=== PATIENT | female | born 1990 | race Caucasian/White ===

== ENCOUNTER → 2023-06-10 06:55 | Outpatient (REF) | payer OTHER, SELFPAY | LOC: HWRAD 06:55 | PROVIDERS: ATTENDING PHYSICIAN Family Medicine | DX: R22.1 Localized swelling, mass and lump, neck (principal) | CPT/HCPCS: 76536 ==

== ENCOUNTER 2024-01-02 18:21 | Inpatient (IN) | payer BC, SELFPAY ==
[2024-01-02] VITALS (7 sets, daily range): BP systolic 114–130; BP diastolic 56–94; BMI 28.0
--- NOTE | 2024-01-02 11:11 | ED.GENMED ---
History of Present Illness
General
Chief Complaint: Abdominal Pain
Time Seen by Provider: 01/02/24 10:55
History of Present Illness
History of Present Illness:
33-year-old female without significant past medical history presenting to the emergency department for nausea, vomiting, diarrhea, abdominal pain. Patient reports pain that started acutely around 3 AM this morning. It woke her up from sleep.
Vomiting and the diarrhea has since resolved, however abdominal pain persists, diffuse in nature. Denies history of abdominal surgeries. Denies fever. Denies any known sick contacts. Did go out to eat last evening, however did not eat anything
out of the ordinary. Denies chest pain or difficulty breathing. Denies urinary symptoms. Last menstrual period ended yesterday. She did not try any medications for pain. She denies additional acute medical complaints.
Past History
Past History
ED Past Medical History: None
ED Past Surgical History: Orthopedic (Left ACL and medial meniscus repair)
Social History
Tobacco: Smoker
Alcohol: None
Drug: None
Personal: Partner
Living: with family
Phy Exam
Physical Exam
Physical Exam:
General: Well-appearing, no clinical signs of dehydration, nontoxic and in no acute distress
HEENT: protecting airway
Neck: appears supple
CV: Normal heart rate, regular rhythm, no evidence of cyanosis
Resp: No accessory muscle use, no increased work of breathing, lungs clear to auscultation bilaterally
Abd: Soft and non-distended, generalized nonfocal tenderness with voluntary guarding, no rebound
Extremities: No deformities, no swelling, no erythema
Neuro: alert, no focal neurologic deficit
: deferred
Rectal: deferred
Psych: Normal affect
Skin: Intact
Course
Orders/Labs/Results
Orders:
Orders
01/02/24 11:06
0.9% Sodium Chloride 1000 ml [Nss] 1,000 ml IV BOLUS
Ketorolac [Toradol] 15 mg IV NOW STA
01/02/24 11:07
CT Abd/pelvis W Iv Cont Urgent
Comment:
Reason For Exam: diffuse pain
Test Result ONCE
01/02/24 11:20
Complete Blood Count/With Diff Urgent
Comprehensive Metabolic Panel Urgent
HCG, Serum Qualitative Screen Urgent
Lipase Urgent
01/02/24 12:11
Add On- LAB Stat
Tests Added?: hcg qualitative
01/02/24 12:28
Add On- LAB Urgent
Tests Added?: serum
01/02/24 13:42
HCG, Urine Qualitative Screen Urgent
Date Specimen was Collected: 01/02/24
Time Specimen was Collected: 13:41
Urinalysis Reflex To Culture Urgent
Date Specimen was Collected: 01/02/24
Time Specimen was Collected: 13:41
Urine Microscopic Reflex Cult Urgent
Urine Culture Urgent
NICKIE Source: U
Specimen Description:
Date Specimen was Collected: 01/02/24
Time Specimen was Collected: 13:41
01/02/24 14:20
Morphine Sulfate 4 mg IV NOW STA
Abnormal Lab Results
01/02/24 01/02/24
11:20 13:42
WBC 16.2 H 10^3/uL
(4.8-10.8)
RBC 3.99 L 10^6/uL
(4.20-5.40)
MCH 34.3 H pg
(27.0-31.0)
Abs Immat Gran (auto) 0.1 H 10^3/uL
(0-0.05)
Absolute Neuts (auto) 14.3 H 10^3/uL
(1.4-6.5)
Neutrophils % 88.4 H %
(42.2-75.2)
Lymphocytes % 7.6 L %
(20.5-51.1)
Glucose 106 H mg/dl
(70-99)
AST 44 H U/L
(14-36)
Urine Ketones Trace A
(Negative)
Urine Nitrite (Reflex) Positive A
(Negative)
Urine Bilirubin 1+ A
(Negative)
Urine Urobilinogen 2+ A
(Neg - 1+)
Leukocyte Esterase Rfl Trace A
(Negative)
Urine Bacteria (Reflex) Moderate A
(Negative)
01/02/24 11:20
01/02/24 11:20
Vital Signs
Initial and Last Documented VS:
Initial Vital Signs
Temp Pulse Resp BP Pulse Ox
98.9 F 99 18 124/94 98
01/02/24 09:53 01/02/24 09:53 01/02/24 09:53 01/02/24 09:53 01/02/24 09:53
Last Documented Vital Signs
Temp Pulse Resp BP Pulse Ox
98.9 F 76 16 114/56 100
01/02/24 09:53 01/02/24 14:39 01/02/24 16:02 01/02/24 14:39 01/02/24 14:39
MDM/Problems Addressed
MDM/Problems Addressed:
33-year-old female without significant past medical history presenting to the to the emergency department for generalized abdominal pain with nausea, vomiting, diarrhea. Vital signs on arrival are normal.
On exam patient is well-appearing, nontoxic, no acute distress. Symptom presentation appears most consistent with viral gastroenteritis, however patient does have mild to moderate diffuse tenderness to the abdomen. Additional diagnostic
considerations include gastritis versus enteritis versus diverticulitis. Appendicitis is also consideration, however no focal right lower quadrant tenderness, lower suspicion. Cholecystitis is a consideration, however no focal right upper quadrant
tenderness, lower suspicion. Will plan for CT abdominal imaging, laboratory analysis, IV fluids and Toradol
16:00 -patient's labs show leukocytosis, however remains afebrile. CT is concerning, with evidence of large pelvic mass, suspected to be arising from the left ovary with large amount of ascites, concerning for peritoneal metastasis. Radiology
mentions potential for ovarian torsion given pain, however on reassessment, tenderness is not focal to the left lower quadrant, remains diffuse with suspicion that patient's pain is from her ascites. Given new diagnosis and patient's pain, plan for
admission for pain control potential IR consultation for. Will also discuss with gynecology.
*Critical Care Note
Total Time (30-74mins, 75-104mins- exclusive of procedures): Not Applicable
ED Attending Note
-
Portions of this chart may have been created with voice recognition software.� Occasional wrong word or��sound alike� substitutions may have occurred due to the inherent limitations of voice recognition software.
Discharge Plan
Departure
Prescriptions:
No Action
amoxicillin-pot clavulanate 875-125 mg tablet
1 tab PO BID Qty: 13 0RF
rabies vaccine, pcec (PF) 2.5 unit suspension for reconstitution
1 ml IM ONCE Qty: 1 0RF
Referrals:
Eliseo Pineda, DO [Family Provider] -
Interventions
Interventions:
*Risk Screen - Suicide Last Done: 01/02/24 11:05
*General Assessment Last Done: 01/02/24 11:04
*Neglect/Abuse Screening Last Done: 01/02/24 11:05
*ED COVID-19 Vaccine History Last Done: 01/02/24 11:04
VJ-Imsrny-Oueaqmhhbh Assessment Last Done: 01/02/24 11:05
Discharge Date and Time
Print Language: KAZAKH
[2024-01-02] MEDS: TORADOL 15 MG IV (11:21)
[2024-01-02] MEDS: NSS 1000 IV (11:22)
[2024-01-02 11:30] LABS: % Basophils 0.1 % (0-2); % Eosinophils 0.1 % (0-6); % Immature Granulocytes 0.4 % (0-0.5); % Lymphocytes 7.6 % (20.5-51.1); % Monocytes 3.4 % (1.7-9.3); % Neutrophils 88.4 % (42.2-75.2); Absolute Immature Granulocytes 0.1 10^3/uL (0-0.05); Absolute Lymphocytes 1.2 10^3/uL (1.2-3.4); Absolute Monocytes 0.6 10^3/uL (0.1-0.6); Absolute Neutrophils 14.3 10^3/uL (1.4-6.5); Hematocrit 38.8 % (37.0-47.0); Hemoglobin 13.7 g/dL (12.0-16.0); Mean Corp Hgb Conc. 35.3 g/dL (33.0-37.0); Mean Corpuscular Hgb 34.3 pg (27.0-31.0); Mean Corpuscular Volume 97.2 fL (81.0-99.0); Nucleated Red Blood Cells % 0 %; Platelet Count 316 10^3/uL (130-400); Red Blood Cell Count 3.99 10^6/uL (4.20-5.40); Red Cell Dist. Width 12.6 % (11.5-14.5); White Blood Cell Count 16.2 10^3/uL (4.8-10.8)
[2024-01-02 11:44] LABS: ALT (SGPT) 17 U/L (0-35); AST (SGOT) 44 U/L (14-36); Albumin 4.7 g/dl (3.5-5.0); Alkaline Phosphatase 68 U/L (38-126); Blood Urea Nitrogen 17 mg/dl (7-17); Calcium 9.9 mg/dl (8.4-10.2); Carbon Dioxide 24 mmol/L (22-30); Chloride 104 mmol/L (98-107); Glucose 106 mg/dl (70-99); Lipase 78 U/L (23-300); Potassium 4.6 mmol/L (3.5-5.1); Sodium 138 mmol/L (135-145); Total Bilirubin 1.2 mg/dl (0.2-1.3); Total Protein 7.3 g/dl (6.3-8.2); eGFR > 60.00
[2024-01-02 14:04] LABS: HCG, Urine Qualitative Screen Negative
[2024-01-02 14:12] LABS: Urine Albumin Trace (Neg - Trace); Urine Bilirubin 1+ (Negative); Urine Character Very Cloudy (Clear); Urine Color Amber; Urine Glucose Negative (Negative); Urine Ketone Trace (Negative); Urine Leukocyte Trace (Negative); Urine Nitrite Positive (Negative); Urine Occult Blood Negative (Negative); Urine Specific Gravity 1.025 (<1.030); Urine Urobilinogen 2+ (Neg - 1+)
[2024-01-02 14:13] LABS: HCG, Serum Qualitative Screen Negative
[2024-01-02] MEDS: MORPHINE SULFATE 4 MG IV ×2 (14:37→20:16)
[2024-01-02 14:50] LABS: Urine Amorphous Seen
[2024-01-02 14:51] LABS: Urine Bacteria Moderate (Negative); Urine Red Blood Cell None Seen /HPF (0-2); Urine White Cell 0-2 /HPF (0-5)
--- NOTE | 2024-01-02 16:48 | HPS.HSE ---
Family Physician
-
Family Physician: Eliseo Pineda
Chief Complaint
-
Abdominal pain, weight gain, axillary and inguinal adenopathy
History of Present Illness
33-year-old female complaining of abdominal pain that woke her up around 3 this morning associated with nausea, vomiting, diarrhea. She reports the vomiting and diarrhea have since resolved however the abdominal pain persists. She does report a
menstrual period ending yesterday 01/01/2024. She reports she has noticed weight gain over the past 2 months in her abdomen along with lumps occurring in bilateral groins and armpits she thought were ingrown hair follicles. Approximate 2 weeks ago
while bending over she felt a lot of pressure in her abdomen. 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 She does drink 3 beers a night Wednesday, Wednesday, Wednesday, , Wednesday with 7 beers each on Wednesday and
Wednesday . in the ER she was noted to have a large complex cystic mass in the pelvis extending into the abdomen concerning for ovarian neoplasm associated with moderate amount of ascites in the abdomen and pelvis concerning for peritoneal spread.
She reports mother with history of cyst removal noncancerous at age 17, sister with history of ovarian cyst, mother age 61 MS. she reports no family history of breast or ovarian cancer
Medical History
Past Medical History
Past Medical History: Reports Other
Additional Past Medical History:
Alcohol abuse
Nicotine abuse
Past Surgical History: Reports Other
Additional Past Surgical History:
Left ACL/MCL repair
Social History
Tobacco: Smoker (1/2 pack cigarettes on and off x 10 years)
Alcohol: Daily (3-4 beers Wednesday, 7 beers Wednesday 7 beers Wednesday)
Drug: None
Personal: Single
Employment: Employed
Family History
Family History: Other (Mother history of ovarian cyst noncancerous removal at age 17, sister history of ovarian cysts, mother age 61)
Allergies / Home Medications
Allergies reflects when Allergies were last updated in [employer].
Home Medications with original date entered in [employer]
Allergy/Medication List:
Allergies
Allergy/AdvReac Type Severity Reaction Status Date / Time
No Known Allergies Allergy Verified 12/21/22 11:50
Home Medications
ibuprofen 200 mg tablet 600 - 800 mg PO Q6HPRN PRN menstrual pain 01/02/24
Review of Systems
-
History Source: Patient and Family (Partner Rafa at bedside)
A 12 point ROS was completed and negative except as noted: Yes
Constitutional: Reports Weight Gain; Denies Fever, Fatigue or Chills
EENT: Denies Tearing or Mouth Swelling
Respiratory: Denies Cough or Trouble Breathing
Cardiac: Denies Chest Pain, Diaphoresis, Palpitations or Syncope
Abdomen/GI: Reports Abdominal Pain, Nausea, Vomiting and Diarrhea
: Denies Dysuria, Frequency, Flank Pain, Incontinence, Difficulty Voiding or Urgency
Musculoskeletal: Denies Joint Pain or Muscle Pain
Skin: Denies Itching or Rash
Neurological: Denies Dizzy, Headache or Weakness
Endocrine: Reports No Symptoms
Hematologic/Lymphatic: Reports Other (Reports bilateral axillary and inguinal adenopathy on and off)
Psych: Reports Calm
Physical Exam
Vital Signs
Vital Signs
Temp Pulse Resp BP Pulse Ox
98.9 F 76 16 114/56 100
01/02/24 09:53 01/02/24 14:39 01/02/24 16:02 01/02/24 14:39 01/02/24 14:39
Physical Exam
General: Comfortable (Post IV morphine) and Conversant; No Fever or Chills
HEENT: NormoCephalic, Anicteric, Moist mucous membranes, PERRLA, Mcdonough Conjunctivae and No Ptosis
Respiratory: Clear; No Wheezes, Rales or Rhonchi
Cardiac: S1/S2 and Regular Rhythm; No Murmur, Rub, Gallop or Peripheral Edema
Breast: No Mass/Lump, Puckering, Skin Changes or Nipple Discharge
GI: Soft, Tender (Generalized abdominal tenderness), Distended and No Hepatosplenomegaly
Rectal: Deferred by Provider
Genito-urinary: Deferred by me
Musculoskeletal: No Clubbing, No Cyanosis and No Edema
Skin: Warm and Dry; No Rash or Jaundice
Neuro: AO x 3, No Motor Deficits, Nonfocal/grossly intact, Cranial Nerves Intact and No Sensory Deficits; No Slurred Speech, Facial Droop, Tremors or Sedated
Hematologic/Lymphatic: Other (Bilateral axillary lymphadenopathy, right inguinal groin adenopathy on palpation)
Psych: Calm
Laboratory Results
-
01/02/24 11:20
01/02/24 11:20
Laboratory Results
Total Bilirubin 1.2 mg/dl (0.2-1.3) 01/02/24 11:20
AST 44 U/L (14-36) H 01/02/24 11:20
ALT 17 U/L (0-35) 01/02/24 11:20
Alkaline Phosphatase 68 U/L (38-126) 01/02/24 11:20
Lipase 78 U/L (23-300) 01/02/24 11:20
Data Reviewed
-
CT Scan: Report Reviewed by me
Lab Data: Labs Reviewed by me
Impression/Plan
-
Impression/plan:
Admit to MedSurg
#Abdominal pain 2/2 likely large LEFT OVARIAN CYSTIC MASS concerning for Neoplasm with ABD ASCITES into pelvis concerning for Malignant ascites
-Consult IR for paracentesis with fluid analysis and cytology
-Consult [facility] Onc Dr tripp chavis
-IV pain control with morphine, Zofran as needed
-hCG, AFP, LDH, CA125
-Check EKG
CT abdomen pelvis with IV contrast:
1. Large complex cystic mass is present within the pelvis and extending into the inferior aspect of the abdomen.
This mass is very likely ovarian in origin, and is most likely ovarian neoplasm, and highly concerning for ovarian carcinoma.
2. Given the acute onset of symptoms, ovarian torsion is a consideration, and please correlate clinically.
3. It is felt that this mass most likely arises from the left ovary.
4. Moderate amount of ascites within the abdomen and pelvis, and raises concern for peritoneal spread of neoplasm.
5. 2 mm nephrolith in the lower pole the left kidney.
#Alcohol abuse
Drinks 3-4 beers Wednesday, Wednesday, Wednesday, , Wednesday
-Drinks 7 beers Wednesday and 7 beers Wednesday
-MSAs screen with protocol
-IV thiamine IV folate
#Nicotine abuse
1/2 ppd x 10 years on /off
pt requesting nicotine patch will place for 14 mg
DVT prophylaxis
Subcu Lovenox
Full code
[2024-01-02 16:54] LABS: LDH 358 U/L (120-246)
[2024-01-02 17:36] LABS: INR 1.06; PT 13.6 Sec (11.4-14.6)
--- NOTE | 2024-01-02 17:46 | W.PN.UPDATE ---
Addendum entered and electronically signed by Liang Suarez DO 01/02/24 18:30:
Spoke with [facility] oncology (Dr. Francisco Ramos) and he feels that this may be an infection rather than malignancy. Could be due to tubo-ovarian abscess. Will start broad-spectrum antibiotics.
Original Note:
Update Note
Progress Note Update
Patient seen and examined. Discussed with KERRI Martel, and I agree with her note.
Gen-AAOx3, NAD
HEENT-NC, AT, anicteric, clear oral mm
Neck-supple
CV-reg, no M, +S1/S2
Lungs-clear B/L
Abd-soft, mild diffuse tenderness, mild distention
Ext-no edema
Musculoskeletal-no cyanosis, clubbing
Skin-warm and dry, bilateral axillary and inguinal lymphadenopathy, nontender
Neuro-grossly non-focal
Psych-calm, cooperative
Symptomatic ascites/large pelvic mass -admit to [facility] for treatment. Intractable pain related to ascites and mass. Will need diagnostic testing. Consult IR for paracentesis. Check fluid cytology. [facility] onc[facility] consult.
Patient noted onset of symptoms about 2 months ago with gradually increasing abdominal girth, swelling, intermittent lymphadenopathy. Denies any changes in her weight, denies anorexia, denies night sweats.
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 scan notes large complex cystic mass in the pelvis extending into the inferior aspect of the abdomen. Appears to be originating from the left ovary. Moderate amount of ascites noted.
Send tumor markers under the guidance of [facility] oncology.
No family history of breast or ovarian cancer.
Alcohol use disorder -watch for withdrawal symptoms. Follow alcohol withdrawal protocol. Thiamine folic acid.
Tobacco dependence -order nicotine replacement therapy.
Full code
[2024-01-02] MEDS: NICODERM TRANSDERMAL 14 MG TRANSDERM (20:10)
[2024-01-02] MEDS: LOVENOX 40 MG SC (20:12)
--- NOTE | 2024-01-02 20:17 | CON.MD ---
Consultation - Medical
-
33 yo G0 with LMP ending today presented to ER after acute pain this morning at 3 am. vomited x 2 foamy contents, diarrhea and generalized abdominal pain. two weeks ago was on belly and noted pressure. No complaints re voiding, bm. No change in
appetite. reports axillary LN after shaving that resolves. Has not shaved for several weeks. groin LN when shaving pubic hair.
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 denies abn pap. onset menses age 11 q m flow x 9d, first few d heavy and painful, monogamous same sex relationship x 3 y. No heterosexual relationship
ROS denies vaginal discharge, denies pain with intercourse
No meds
NKDA
SH half ppd, no vape, social marijuana, denies IVDU, [facility] [place]
FH M age 60 due to MS. Davila at age 16. F 67 no meds arthritis. youngest of 5. one sister with ovarian cysts. no fh breast, ov, ut, colon cancer
PE pleas white female, moves easilly
vss afeb
lungs cl
cor rrr
breasts no masses, shotty axillary Ln L axilla mobile and nontender, no supraclavicular LN palpated
abd soft, + bs, no guarding, + rebound, no referred pain, generalized abdominal discomfort
ext nt
vulva bus vag appear nml
cvx nulliparous appearing, no abn appearing discharge, no cervical motion tender
uterus normal and nontender
tender L adnexa
wbc 16
LDH 358
hcg neg
afp pending
ca [address] scan reviewed with Dr. Pulido:Large complex cystic mass within central pelvis. multiple cystic components. superior to ut. Moderate ascites. no signif enl abdominal or pelvic LN identified
Imp
abdominal pain
pelvic mass
Plan:
await tumor markers
pelvic US
abx pending gc/chlam cx
analgesia
consult Dr Ramos
30 min
[2024-01-02] MEDS: VIBRAMYCIN 260 MG IV (20:20)
[2024-01-02] MEDS: CEFOTAN 1000 MG IV (20:20)
[2024-01-02] MEDS: STERILE WATER FOR INJECTION 10 ML IV (20:20)
--- NOTE | 2024-01-02 21:55 | W.CON.GYNONC ---
Consultation
-
Date/Time Consultation Requested: 01/02/2024 4:24 pm
Date/Time Consultation Performed: 01/02/2024 9:50 pm
Requesting Provider: Edd Guerra
Performing Provider: Francisco Ramos
Reason for Consultation: Pelvic Mass
Chief Complaint
-
abdominal pain
History of Present Illness
33 yo G0 WF with LMP 12/27 presented to ER after acute pain this morning at 3 am. She describes vomited x 2, diarrhea and generalized abdominal pain. two weeks ago was on belly and noted pressure. No complaints re voiding, bm. No change in
appetite. reports axillary LN after shaving that resolves. Has not shaved for several weeks. groin LN when shaving pubic hair.
Nursing Faculty History per Dr Gerber:
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
denies abn pap. onset menses age 11 q m flow x 9d, first few d heavy and painful,
monogamous same sex relationship x 3 y.
No heterosexual relationship
Medical History
Past Medical History
Past Medical History: Reports None
Past Surgical History: Reports Other (knee arthroscopy)
Social History
Tobacco: Vaping
Alcohol: Daily
Drug: Marijuana
Employment: Employed
Allergies
Allergies reflect when allergies were last updated in [employer].
No Known Allergies Allergy (Verified 12/21/22 11:50)
Review of Systems
-
History Source: Patient
Abdomen/GI: Reports Abdominal Pain, Vomiting and Diarrhea
Physical Exam
Vital Signs / I&O
Vitals
Temp Pulse Resp BP Pulse Ox
98.9 F 75 18 130/61 97
01/02/24 19:53 01/02/24 19:53 01/02/24 19:53 01/02/24 19:53 01/02/24 19:53
Results
-
08/25/24 11:20
01/02/24 11:20
[facility]
[address] [place] [address]
[phone]
Patient Name: WILVER SMALLWOOD
: 1990
Unit Number: [id number]
Age/Sex: 33/F
Patient
Location: EMR
Order Provider: Edd Guerra DO
Exam Service Date: 01/02/24

Diagnostic Imaging Report
SignedOrder #:[id number]
Exams: CT Abd/pelvis W Iv Cont
EXAMINATION: CT of the abdomen and pelvis with intravenous contrast
INDICATION: 33-year-old with diffuse abdominal pain. Emesis and diarrhea. Elevated white blood cell count. Negative test.
COMPARISON: No comparison examination is available.
FINDINGS: CT of the abdomen and pelvis with intravenous contrast and without oral contrast, per the emergency department CT protocol.
Linear densities within both lower lungs, which likely represent linear atelectasis.
There is a large complex cystic mass within the central pelvis, with thickened enhancing septae and peripheral wall thickening. Multiple cystic components within the mass. This mass measures 13.4 cm craniocaudal by 12.2 cm transverse by 12.8 cm AP.
The mass is superior to the uterus.
This mass is most likely ovarian in origin. It most likely arises from the left ovary. I believe that I can identify a normal-appearing right ovary within the right pelvis.
This mass is considered highly suspicious for ovarian neoplasm and carcinoma, given the morphologic features.
No significant fat component is identified that would suggest a dermoid.
There is a moderate amount of ascites present within all 4 quadrants. The posterior left upper quadrant, there is suggestion of slight soft tissue thickening, and findings raise concern for malignant ascites.
Of note, given the acute onset of symptoms, torsion of this ovarian mass is a consideration.
For a complex cystic mass, tubo-ovarian abscess can be considered in the differential, but tubo-ovarian abscess is felt to be significantly less likely.
No focal abnormality gallbladder by CT with no evidence for biliary ductal dilation.
The liver appears within normal limits.
Spleen appears normal.
Both adrenal glands appear normal. The pancreas appears normal.
In the lower pole the left kidney, there is a 2 mm nephrolith. No other definite nephroliths are identified. No other focal abnormality kidneys. The visualized pelvicalyceal systems and ureters appear within normal limits.
The urinary bladder is not distended, with no gross abnormality.
No abnormality of the uterus.
Evaluation of the bowel is limited by the lack of GI luminal contrast agent. There are top normal to mildly dilated air-filled loops of small bowel present, most likely an adynamic ileus.
The appendix is retrocecal with no evidence for appendicitis.
There is no free intraperitoneal air.
The aorta has normal caliber.
No significantly enlarged abdominal or pelvic lymph nodes are identified.
At L5-S1, grade 1 spondylolisthesis with bilateral L5 pars defects. Moderate degenerative disc disease at L5-S1 with vacuum disc phenomenon.
Changes of previous mild Scheuermann's disease in the lower thoracic spine.
Minimal degenerative change of both hip joints.
IMPRESSION: Large complex cystic mass is present within the pelvis and extending into the inferior aspect of the abdomen. This mass is very likely ovarian in origin, and is most likely ovarian neoplasm, and highly concerning for ovarian carcinoma.
Given the acute onset of symptoms, ovarian torsion is a consideration, and please correlate clinically.
It is felt that this mass most likely arises from the left ovary. See above discussion.
Moderate amount of ascites within the abdomen and pelvis, and raises concern for peritoneal spread of neoplasm.
2 mm nephrolith in the lower pole the left kidney.
Electronically signed by Hugo Pulido MD, 01/02/2024 3:19 PM
Impression / Plan
-
I am concerned about possible tuboovarian abscess based on imaging, and symptoms as well as leukocytosis.
1. obtain Pelvic US
2. start emiric antibiotics broad spectrum with Vanco Cefepeme, +/- flagyl
3. diagnostic and therapeutic Paracenthesis (cytology and culture)
4. Consult IR for placement of drain into the pelvic mass. send drain output for cytology and culture and GS
5. If the clinical picture (fluids , drain output) does not show infection, I will add her for surgery to be done later this week.
I will follow with you , thank you for consulting me.
Francisco Ramos MD
[facility]urs[facility] Oncology/[place]
[phone]
--- NOTE | 2024-01-02 22:00 | PTCARENOTE ---
Patient received from ED via stretcher. Patient able to ambulate independently to bed. Patient c/o pain throughout abdomen, see MAR. Patient oriented to room and call bennett. Patient's significant other at bedside providing emotional support. POC and
testing reviewed. Care ongoig, will monitor.
[2024-01-02] MEDS: THIAMINE INJECTION 200 MG IV (23:29)
[2024-01-02 23:45] LABS: APTT 40.8 Sec (23.4-35.0)
[2024-01-02 23:52] LABS: GGTP 192 U/L (12-43); Magnesium 1.7 mg/dl (1.6-2.3); Phosphorus 2.9 mg/dl (2.5-4.5)
[2024-01-02 23:58] LABS: B-Hydroxybutyrate 0.27 mmol/L (0.02-0.27)
[2024-01-03 00:02] LABS: Alcohol None Detected
[2024-01-03 05:34] VITALS: BMI 28.0
[2024-01-03 06:10] LABS: % Basophils 0.4 % (0-2); % Eosinophils 1.7 % (0-6); % Immature Granulocytes 0.4 % (0-0.5); % Lymphocytes 23.6 % (20.5-51.1); % Monocytes 7.7 % (1.7-9.3); % Neutrophils 66.2 % (42.2-75.2); Absolute Eosinophils 0.1 10^3/uL (0-0.7); Absolute Monocytes 0.6 10^3/uL (0.1-0.6); Absolute Neutrophils 5.5 10^3/uL (1.4-6.5); Hematocrit 33.9 % (37.0-47.0); Hemoglobin 11.9 g/dL (12.0-16.0); Mean Corp Hgb Conc. 35.1 g/dL (33.0-37.0); Mean Corpuscular Hgb 34.9 pg (27.0-31.0); Mean Corpuscular Volume 99.4 fL (81.0-99.0); Mean Platelet Volume 10.4 fL (7.4-10.4); Nucleated Red Blood Cells % 0 %; Platelet Count 250 10^3/uL (130-400); Red Blood Cell Count 3.41 10^6/uL (4.20-5.40); Red Cell Dist. Width 12.6 % (11.5-14.5); White Blood Cell Count 8.3 10^3/uL (4.8-10.8)
[2024-01-03 06:24] LABS: ALT (SGPT) 19 U/L (0-35); AST (SGOT) 58 U/L (14-36); Albumin 3.7 g/dl (3.5-5.0); Alkaline Phosphatase 68 U/L (38-126); Blood Urea Nitrogen 13 mg/dl (7-17); Carbon Dioxide 22 mmol/L (22-30); Chloride 107 mmol/L (98-107); Estimated Creatinine Clearance 120 ml/min; Glucose 96 mg/dl (70-99); LDH 382 U/L (120-246); Potassium 4.1 mmol/L (3.5-5.1); Sodium 138 mmol/L (135-145); Total Bilirubin 1.2 mg/dl (0.2-1.3); Total Protein 6.1 g/dl (6.3-8.2); eGFR > 60.00
[2024-01-03 07:27] VITALS: BP 126/69
[2024-01-03] MEDS: VIBRAMYCIN 260 MG IV ×2 (07:55→21:10)
[2024-01-03] MEDS: THIAMINE INJECTION 200 MG IV ×3 (07:57→23:24)
[2024-01-03] MEDS: FOLVITE 1 MG PO (07:57)
[2024-01-03] MEDS: NICODERM TRANSDERMAL 14 MG TRANSDERM (08:03)
--- NOTE | 2024-01-03 08:42 | W.PN.HOSP.TC ---
Today's Communication/Plan
-
IV antibiotics. Pelvic ultrasound and MRI.
Assessment / Plan
Assessment / Plan
Physical exam:
General: Acutely ill. Nontoxic appearance.
HEENT: Normocephalic, Atraumatic and Moist Mucous Membranes
Respiratory: Clear to Auscultation; Negative Wheezes, Rales or Rhonchi
Cardiac: Regular Rhythm and S1/S2
GI: Soft, Tender and Nondistended
Musculoskeletal: No Clubbing, No Cyanosis and No Edema
Neuro: Awake, Alert and Oriented
Psych: Calm
A/P:
Pelvic mass:
Plan for pelvic ultrasound
Plan for MRI
Continue IV antibiotics, cefotetan and doxycycline.
CA125 pending
Pain control
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
Alcohol use disorder:
On MSA protocol
No evidence of withdrawal at the moment
Nicotine use disorder:
Nicotine patch
DVT prophylaxis-Lovenox
CODE STATUS-full code
Anticipated Discharge: > 48 hours
Subjective/Interval History
-
Date of Service: January 03, 2024
Patient with some abdominal discomfort. No chest pain or shortness of breath. Afebrile
Objective Data
-
Labs:
Laboratory Results
01/02/24 01/03/24
23:24 05:29
WBC 8.3
Hgb 11.9 L
Hct 33.9 L
Plt Count 250 D
PT 14.0
INR 1.10
APTT 40.8 H
Sodium 138
Potassium 4.1
Chloride 107
Carbon Dioxide 22
BUN 13
Creatinine 0.7
Glucose 96
Calcium 9.0
Total Bilirubin 1.2
AST 58 H
ALT 19
Alkaline Phosphatase 68
Vital Signs:
Vital Signs
Temp Pulse Resp BP Pulse Ox
97.8 F 84 17 126/69 96
01/03/24 07:27 01/03/24 07:27 01/03/24 07:27 01/03/24 07:27 01/03/24 07:27
I&O
01/02/24 01/03/24 01/04/24
06:59 06:59 06:59
Intake Total 120 / 120
Balance 120 / 120
[2024-01-03] MEDS: STERILE WATER FOR INJECTION 10 ML IV ×2 (09:46→21:10)
[2024-01-03] MEDS: CEFOTAN 1000 MG IV ×2 (09:47→21:09)
--- NOTE | 2024-01-03 11:38 | CM ---
Met with pt at bedside
Pt reports she lives in an apartment with no steps to enter, elevator access with her domestic partner
Independent, Employed FT, drives
DME - none
SNF/HH - no past hx. Has had outpatient PT at [facility]
Has ride at discharge
PCP - Dr Eliseo Hamlin
Pharm - [facility] on [address]
Discussed insurance - per pt she has BC but has not received her insurance cards yet. Planning to call insurance today to obtain ID/card
CM consult - substance abuse counseling
Discussed with pt - offered counseling services/[facility] - pt declined
CM will follow for d/c needs
Plan - Anticipate home no needs
[2024-01-03 12:08] LABS: Urine Albumin Negative (Neg - Trace); Urine Bilirubin Negative (Negative); Urine Character Clear (Clear); Urine Color Yellow; Urine Glucose Negative (Negative); Urine Ketone Negative (Negative); Urine Leukocyte Negative (Negative); Urine Nitrite Negative (Negative); Urine Occult Blood Negative (Negative); Urine Urobilinogen Negative (Neg - 1+); Urine pH 6.5 (5.0-9.0)
--- NOTE | 2024-01-03 12:10 | W.PN.OBG.DWH ---
Today's Communication / Plan
-
MRI
Continue with antibiotics
IR consult if MRI diagnosis is abscess
Follow up on cervical cultures and CA-125
Assessment/Plan
-
A/P Pelvic mass-Proceed with MRI as ordered by Dr Ramos, expect patient will see him once this is resulted.. Continue with antibiotics, await results of cervical cultures and CA-125 (both ordered last evening). Patient aware if neoplasm, surgery
will be necessary, if abscess, IR to be consulted for drainage.
Subjective Data
-
Patient feels less pain, can move without 'as much' pain as yesterday. Is hungry. Had ultrasound, reviewed findings. Advised patient radiologist feels this is more likely neoplasm, less likely abscess.
Is aware is scheduled for MRI today
Objective Data
-
Laboratory Results
01/03/24 05:29
01/03/24 05:29
Vital Signs
Temp Pulse Resp BP Pulse Ox
97.8 F 84 17 126/69 96
01/03/24 07:27 01/03/24 07:27 01/03/24 07:27 01/03/24 07:27 01/03/24 08:05
Abdomen-soft, mildly distended, mildly tender diffusely in lower quadrants, no rebound or guarding, good bowel sounds.
Extremities-no calf pain
Ultrasound reviewed with radiologist: Complex cystic mass likely arising from LEFT ovary, not tubular, no peristalsis. More likely neoplasm, less likely TOA or bowel-related.
[2024-01-03 12:19] LABS: HCG, Urine Qualitative Screen Negative
[2024-01-03 12:55] VITALS: BMI 28.0
[2024-01-03 12:55] LABS: Amphetamines Negative (Negative); Barbiturates Negative (Negative); Benzodiazepines Negative (Negative); Buprenorphine Negative (Negative)
[2024-01-03 12:56] LABS: Cocaine Negative (Negative); Marijuana Positive (Negative); Methadone Negative (Negative); Methamphetamines Negative (Negative); Opiates Positive (Negative); Phencyclidine Negative (Negative); Tricyclic Antidepressants Negative (Negative)
[2024-01-03 13:25] VITALS: BP 124/76; BP_SYST 76
[2024-01-03 13:29] LABS: Fentanyl, Urine Negative (Negative)
[2024-01-03 13:50] VITALS: BP 126/71; BP_SYST 76
--- NOTE | 2024-01-03 14:13 | IR.POSTOP ---
IRAD Post Procedure Note
-
Description of Findings:
Successful US guided aspiration of a cystic mass within the pelvis. 235 cc mildly thick, reddish brown fluid aspirated and sent to the lab for further analysis. Post aspiration US showed near complete decompression of the cystic mass with minimal
residual fluid.
[2024-01-03 14:59] VITALS: BP 132/73
--- NOTE | 2024-01-03 15:56 | W.PN.GYNONC ---
Today's Communication
-
awaiting results of MRI and pelvic u/s
Impression / Plan
-
I am concerned about possible tuboovarian abscess based on imaging, and symptoms as well as leukocytosis.
1. obtain Pelvic US
2. start emiric antibiotics broad spectrum with Vanco Cefepeme, +/- flagyl
3. diagnostic and therapeutic Paracenthesis (cytology and culture)
4. Consult IR for placement of drain into the pelvic mass. send drain output for cytology and culture and GS
5. If the clinical picture (fluids , drain output) does not show infection, I will add her for surgery to be done later this week.
I will follow with you , thank you for consulting me.
Francisco Ramos MD
[facility]/[place]
[phone]
01/03/24-
discussed case with Dr Ramos, he has reached out to IR
still needs pelvic ultrasound and radiology also recommending MRI
Subjective / Interval History
-
33 yr old white female feeling better this morning Pain has improved Last dose of pain medication was last night at 8 pm no nausea or vomiting overnight.
PMH- no hx of ovarian cyst states cycles heavy with clots lasting 7 to 9 days cycles monthly and have always been heavy. LMP 12/24- states first day she did have more pain than usual.
Objective Data
-
Lab Results:
01/03/24 05:29
01/03/24 05:29
Physical Exam
Vital Signs / I&O
Vitals
Temp Pulse Resp BP Pulse Ox
98.0 F 76 17 132/73 98
01/03/24 14:59 01/03/24 14:59 01/03/24 14:59 01/03/24 14:59 01/03/24 14:59
I&O
08/24/24 08/25/24 08/26/24 08/27/24
06:59 06:59 06:59 06:59
Intake Total 120 / 120
Balance 120 / 120
Physical Exam
VSS
afebrile
abdomen- soft fullness on left side under umbilicus tenderness over the fullness no rebound tenderness.
Data Reviewed
-
Lab Data: Labs Reviewed and Discussed with Physician
[2024-01-03 16:59] LABS: Body Fluid WBC 633 /CUMM
[2024-01-03 18:01] LABS: Body Fluid Second Tech CMC
[2024-01-03] MEDS: LOVENOX 40 MG SC (18:09)
[2024-01-03 19:16] LABS: CA 125 231 U/mL (0-35)
[2024-01-03 19:20] LABS: AFP Male/Tumor Marker 1.98 ng/ml
[2024-01-03 23:00] VITALS: BP 120/76
[2024-01-04] VITALS (14 sets, daily range): BP systolic 117–143; BP diastolic 57–74; BMI 27.5
--- NOTE | 2024-01-04 05:35 | PTCARENOTE ---
In anticipation for OR, pt's linens changed and CHG wipes completed. Pt has been NPO since midnight
[2024-01-04 06:26] LABS: % Basophils 0.4 % (0-2); % Eosinophils 2.8 % (0-6); % Immature Granulocytes 0.3 % (0-0.5); % Lymphocytes 22.2 % (20.5-51.1); % Monocytes 9.1 % (1.7-9.3); % Neutrophils 65.2 % (42.2-75.2); Absolute Eosinophils 0.2 10^3/uL (0-0.7); Absolute Lymphocytes 1.5 10^3/uL (1.2-3.4); Absolute Monocytes 0.6 10^3/uL (0.1-0.6); Absolute Neutrophils 4.4 10^3/uL (1.4-6.5); Hematocrit 34.7 % (37.0-47.0); Mean Corp Hgb Conc. 34.6 g/dL (33.0-37.0); Mean Corpuscular Hgb 33.7 pg (27.0-31.0); Mean Corpuscular Volume 97.5 fL (81.0-99.0); Mean Platelet Volume 10.5 fL (7.4-10.4); Nucleated Red Blood Cells % 0 %; Platelet Count 247 10^3/uL (130-400); Red Blood Cell Count 3.56 10^6/uL (4.20-5.40); Red Cell Dist. Width 12.1 % (11.5-14.5); White Blood Cell Count 6.7 10^3/uL (4.8-10.8)
[2024-01-04 06:39] LABS: ALT (SGPT) 22 U/L (0-35); AST (SGOT) 58 U/L (14-36); Albumin 3.8 g/dl (3.5-5.0); Alkaline Phosphatase 69 U/L (38-126); Blood Urea Nitrogen 9 mg/dl (7-17); Calcium 8.9 mg/dl (8.4-10.2); Carbon Dioxide 22 mmol/L (22-30); Chloride 106 mmol/L (98-107); Estimated Creatinine Clearance > 125 ml/min; Glucose 77 mg/dl (70-99); Sodium 140 mmol/L (135-145); Total Bilirubin 0.9 mg/dl (0.2-1.3); Total Protein 6.4 g/dl (6.3-8.2); eGFR > 60.00
[2024-01-04] MEDS: FOLVITE PO (07:49)
[2024-01-04] MEDS: NICODERM TRANSDERMAL 14 MG TRANSDERM (07:49)
[2024-01-04] MEDS: VIBRAMYCIN 260 MG IV (07:49)
[2024-01-04] MEDS: THIAMINE INJECTION 200 MG IV ×3 (07:52→23:20)
[2024-01-04] MEDS: CEFOTAN 1000 MG IV (07:52)
[2024-01-04] MEDS: STERILE WATER FOR INJECTION 10 ML IV (07:52)
--- NOTE | 2024-01-04 08:42 | W.PN.HOSP.TC ---
Addendum entered and electronically signed by Jeffery Law MD 01/04/24 18:18:
Likely neoplastic findings-stop abx and cont postop care.
Original Note:
Today's Communication/Plan
-
Plan to take her to the OR today.
Assessment / Plan
Assessment / Plan
Physical exam:
General: Acutely ill. Nontoxic appearance.
HEENT: Normocephalic, Atraumatic and Moist Mucous Membranes
Respiratory: Clear to Auscultation; Negative Wheezes, Rales or Rhonchi
Cardiac: Regular Rhythm and S1/S2
GI: Soft, Tender and Nondistended
Musculoskeletal: No Clubbing, No Cyanosis and No Edema
Neuro: Awake, Alert and Oriented
Psych: Calm
A/P:
Pelvic mass:
Pelvic ultrasound showed large complex cystic mass
MRI showed large complex cystic mass
Continue IV antibiotics, cefotetan and doxycycline.
CA125 elevated at 231
Pain control
FIBROUS PLASTERER consult and follow-up appreciated--> plan to possibly take her to the OR today.
Alcohol use disorder:
On MSA protocol
No evidence of withdrawal at the moment
Nicotine use disorder:
Nicotine patch
DVT prophylaxis-Lovenox
CODE STATUS-full code
Anticipated Discharge: 24 - 48 hours
Subjective/Interval History
-
Date of Service: January 04, 2024
Patient with abdominal discomfort on and off. No chest pain or shortness of breath. Afebrile
Objective Data
-
Labs:
Laboratory Results
01/04/24
05:25
WBC 6.7
Hgb 12.0
Hct 34.7 L
Plt Count 247
Sodium 140
Potassium 4.0
Chloride 106
Carbon Dioxide 22
BUN 9
Creatinine 0.6
Glucose 77
Calcium 8.9
Total Bilirubin 0.9
AST 58 H
ALT 22
Alkaline Phosphatase 69
Vital Signs:
Vital Signs
Temp Pulse Resp BP Pulse Ox
98.3 F 73 18 120/57 97
01/04/24 07:21 01/04/24 07:21 01/04/24 07:21 01/04/24 07:21 01/04/24 07:21
I&O
01/03/24 01/04/24 01/05/24
06:59 06:59 06:59
Intake Total 120 / 120 1460 / 1460
Balance 120 / 120 1460 / 1460
--- NOTE | 2024-01-04 10:31 | W.PN.GYNONC ---
Today's Communication
-
N/A
Impression / Plan
-
Patient has had 235 cc thick reddish-brown fluid drained in interventional radiology yesterday, there is still a few smaller locules that did not communicate with the main locule. So far there is no evidence of overt malignancy based on cytology
evaluation. Gram stain does not show obvious organism although white blood cell counts are present. There is evidence of macrophages present. I am suspicious that we are dealing with a endometrioma. I discussed these findings and updated patient
with this information.
My plan is to proceed with surgery, robotic assisted exploration of the abdomen will be performed, any residual ascites will be drained and submitted to pathology for cytology evaluation. Peritoneal biopsies will be done. I discussed with the
patient that my plan is to perform left salpingo-oophorectomy., If any part of the left adnexa can be preserved we will do so, mini laparotomy will need to be made to extract the specimen and sent for frozen sections. If this is a malignancy
additional staging procedures to include pelvic and aortic lymph node biopsies, omentectomy, peritoneal biopsies will be done. At this point because of nulligravida state the patient is desirous of retaining her right tube and ovary and uterus.
Certainly decision can be made at a later time to do additional procedures if needed. If there is no evidence of malignancy then a survey of the abdomen and bowels will be made but I do not plan for any additional procedures.
Risks of surgery including infection bleeding injury to adjacent organs DVT pulmonary embolism and cardiovascular complications were discussed and reviewed. Consent will be formally signed in the preop area . Patient and her significant other had
an opportunity to all their questions answered.
Patient is on OR schedule for later this morning.
Francisco Ramos MD
[facility]/[place]
[phone]
Subjective / Interval History
-
I met with the patient and her significant other today, she did sleep on and off but was overall worried that she has to have surgery today
Most of her abdominal pain appears to be epigastric in nature at this point, overall her pain is significant better since she came to the hospital.
She reports some loose bowel movements throughout yesterday and 1 overnight attributing it to some of the diarrhea from antibiotic
Objective Data
-
Lab Results:
01/04/24 05:25
01/04/24 05:25
Physical Exam
Vital Signs / I&O
Vitals
Temp Pulse Resp BP Pulse Ox
98.3 F 73 18 120/57 97
01/04/24 07:21 01/04/24 07:21 01/04/24 07:21 01/04/24 07:21 01/04/24 07:21
I&O
01/02/24 01/03/24 01/04/24 01/05/24
06:59 06:59 06:59 06:59
Intake Total 120 / 120 1460 / 1460
Balance 120 / 120 1460 / 1460
Physical Exam
General: Well Developed, Well Nourished and No Apparent Distress
Respiratory: Clear and Non Labored Respirations
Cardiac: S1/S2 and Regular Rhythm
GI: Soft, Non Tender and Non Distended
Musculoskeletal: No Clubbing, No Cyanosis and No Edema
Neuro: Awake, Alert, Oriented and No Motor Deficits
Psych: Calm and Intact Judgement
Data Reviewed
-
Diagnostic Radiology: Image personally visualized and interpreted
CT Scan: Image personally visualized and interpreted
Lab Data: Labs Reviewed and Discussed with Physician (Spoke with Dr Guzman in pathology, cyst aspirate shows acellular debris and rare macrophages. There is no overt malignancy, there were no organisms seen in microbiology Gram stain specimen)
--- NOTE | 2024-01-04 11:23 | PTCARENOTE ---
Belongings removed and left in room. Report given to SCHEDULE ANALYST. Pt to OR with transport team.
--- NOTE | 2024-01-04 14:46 | CM ---
Case management following for discharge planning
Chart reviewed
OR today for robotic assisted exploration of the abdomen with TOOL RADIAL DRILL PRESS SET UP OPERATOR/ONC
CM will cont to follow for d/c needs
Plan - anticipate home no needs
--- NOTE | 2024-01-04 16:20 | OR.RPT ---
Operative Report
Operative Report
Date of procedure: January 04, 2024
Preoperative diagnosis: Left lower quadrant mass, ascites
Postoperative diagnosis: Cancer of left ovary, final stage pending pathology. Optimally debulked
Procedure:
Robotic assisted laparoscopic left salpingo-oophorectomy, right ovarian cystectomy 32845-53
Robotic assisted bilateral pelvic lymphadenectomy, bilateral periaortic lymph node dissection, infracolic omentectomy 58913
Robotic assisted laparoscopic appendectomy 42372
Robotic assisted laparoscopic biopsies of multiple peritoneal sites, aspiration of ascites
Dilation and curettage 54383
Mini laparotomy for extraction of specimen [id number]
Surgeon: Francisco Ramos MD
Assist: Gary Guido PA-C
EBL: 100 cc
Anesthesia: General ET, TAP block
Complications: None
Procedure in detail:
This patient was brought to the operating room for definitive management of large left lower quadrant pelvic mass. She had presented 48 hours ago with acute pain to the emergency room. Imaging studies including CT abdomen and pelvis, ultrasound of
pelvis and MRI was obtained and she had received antibiotics for suspected tubo-ovarian abscess. Upon arrival to the operating room she was placed in supine position, general anesthesia was administered she was intubated without any difficulty she
was placed in lithotomy position using yellowfin stirrups. Her arms were wrapped in foam, and protected across all joints. Anesthesia team performed tap block. She was prepped on the abdomen perineum and vagina and she was draped. Timeout
procedure was carried out she received 2 g of Ancef for prophylaxis, and had received 5000 units of heparin subcutaneous injection. Eugene catheter was placed for drainage of bladder. Speculum was placed in the vagina, anterior lip of the cervix
was grasped with single-tooth tenaculum. Cervical canal was dilated up to 23 Hegar dilators and sharp curettage of the endometrial canal was performed and this tissue was submitted as EMC to pathology. A uterine manipulator stock parts fabricator type with
3.0 cm SHAN ring was placed in the uterus and the cup was secured around the cervix.
Attention was turned to the abdomen, Veress needle was inserted just below the left subcostal margin and CO2 gas was used to insufflate the abdomen and create pneumoperitoneum up to pressure of 15 mmHg. Next 8 mm X I trocar was inserted 25 cm
cephalad to symphysis pubis into the peritoneal cavity, under direct visualization additional ports 8 mm in size was placed in right upper quadrant left upper quadrant and left lateral abdomen and a 12 mm air seal port was placed in the right lower
quadrant. There was large volume ascites in the perihepatic space which was extracted, sample was sent for cytology and a sample was sent for aerobic and anaerobic cultures.
Findings: We turned our attention to the pelvis, a large pelvic mass was visible that was removed on the outside and it did not attach to any adjacent structures. The mass was partially collapsed as the interventional radiology department had
collapsed part of the mass for us yesterday. Examination of the upper abdomen reveals right and left diaphragms to be normal, falciform ligament liver spleen stomach and omentum is unremarkable. There was no obvious peritoneal implants. Uterus
was normal, right tube and ovary appeared to be normal and there was a physiologic cyst on the right ovary. On the posterior cul-de-sac there was a suspicious contracted peritoneum toward the right pelvis. There was some mucin like implants in the
periappendiceal tissue as well as omentum. At the completion of the procedure there was no visible residual disease and there was no retroperitoneal lymphadenopathy.
The patient was placed in 28 degree Trendelenburg, excised robotic system was docked, we began in the pelvis by opening the left pelvic sidewall, we developed pararectal and paravesical spaces, the course of the ureter was identified.
Infundibulopelvic ligament was isolated. And sealed 3 times with vessel sealer and divided. We preserve the left round ligament, the tube and ovary was mobilized and fallopian tube insertion into the uterus as well as utero-ovarian ligament were
sealed and divided. The specimen was placed in a 12/15 mm bag. Next a 6 cm incision was made in the suprapubic region in a transverse fashion skin, subcutaneous tissue fascia was opened and the rectus muscle was . A lap cap tristan
retractror was placed here. We brought bag containing left tube and ovary through this, the bag was opened and the specimen was ruptured and deflated and removed in 2 pieces. This was sent for frozen section. Pathology demonstrates presence of
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 The Was placed over the Tristan retractor and surgery continued. We performed peritoneal biopsies from right and left paracolic gutter right and left pelvis anterior
cul-de-sac as well as excised the suspicious posterior cul-de-sac implant. Loops of bowel were examined and they were generally normal without any tumor implant present. Omentum was brought into view. A series of windows were created just below
the transverse colon and omental vessels were sealed and divided from hepatic to splenic flexure. Omentum was placed in a 10 mm bag and placed in the pelvis for future extraction. There was a loop of ileum that was adherent to the peritoneum
covering psoas muscle this was released, mesoappendix was visualized and identified. There was a mucinous implant on this area. Mesoappendix was sealed and divided with vessel sealer and then a Endo ROBY vascular load stapler was used to staple
across and eventually cut the appendix. The appendix was also placed in an endoscopic bag. Systematic lymphadenectomy was performed from right and left pelvis removing the entire lymphatic tissue between bifurcation of common iliac vessels down to
the level of the circumflex iliac artery and vein along the external iliac vessels, additional lymph nodes were also removed from hypogastric vessel and untreated fossa anterior to the obturator nerve. There was no injury to blood vessels nerves or
ureters during this process right and left pelvic lymph node specimens were submitted separately to pathology. Next the peritoneum over right common iliac artery and lower aorta was opened. The entire lymph node starting from the level of MARKEL was
removed down to the level of right common iliac artery overlying aorta as well as vena cava. Next the mesentery of the sigmoid colon was elevated and we were able to enter the left periaortic lymph node space. High periaortic lymph nodes were
removed just above the MARKEL level and submitted to pathology. The lower left para-aortic lymph nodes were removed from the level of MARKEL down to the level of common iliac vessels lateral to the aorta. During the course of dissection we identified
the course of the ureter and observed it and prevented any injury to the ureter. At this point all necessary specimens had been removed
This patient is nulliparous and is desirous of returning her uterus and right tube and ovary. The uterus itself did not have any tumor implants on it and left in situ. The right fallopian tube is normal. The right ovary contained a cyst which I
suspect is physiologic in nature based on evaluation however right ovarian cystectomy was performed and this was submitted to pathology. Good hemostasis was present. 12 mm air seal port was removed and we used Teto Smith system to close the
fascia with 0 Vicryl suture ligature. Next bags containing omentum and appendix were removed from the lap Cap Tristan retractor. There retractor itself was removed. Fascia was closed with a Stratafix suture in 2 layers. Subcutaneous tissue was
reapproximated with 2-0 Monocryl. Pneumoperitoneum had already been released, robotic system had been undocked and ports were removed all port sites as well as low transverse incision were closed with 4-0 Monocryl in a subcuticular fashion.
Dermabond was applied to all incisions. All incisions were injected with 0.5% Marcaine.
Eugene catheter was removed at the completion of surgery. Uterine manipulator was removed at the completion of surgery.
Patient was awakened and extubated and returned back to recovery room stable awake and extubated condition. Counts of laps instruments and needles correct x 2. I was present and scrubbed for entire procedure as dictated above.
[2024-01-04] MEDS: TORADOL 15 MG IV (16:55)
[2024-01-04] MEDS: NSS 1000 IV (17:04)
--- NOTE | 2024-01-04 17:55 | PTCARENOTE ---
1745: Patient arrived to 2S. Full head to toe assessment completed. MSAS completed. Awa pad clean and dry. Lap sites open to air, clean dry and intact. IVF running per order. Call bennett within reach and bed in lowest position. Family at bedside.
--- NOTE | 2024-01-04 18:09 | W.PN.UPDATE ---
Update Note
Progress Note Update
patient was already out of room and taken to OR when I was available to see her earlier today, and now I have read her OP note from [facility] stating that adenocarcinoma of the ovary was seen on frozen section. Thus, at this time Gen SALES AMBASSADOR will sign
off. Please contact us if anything more is needed from us during this hospitalization.
[2024-01-04] MEDS: LOVENOX 40 MG SC (18:14)
[2024-01-04] MEDS: TYLENOL 1000 MG PO ×2 (18:14→23:20)
[2024-01-04] MEDS: MOTRIN 600 MG PO (23:20)
[2024-01-04] MEDS: MELATONIN 5 MG PO (23:40)
[2024-01-05 03:08] VITALS: BP 113/51
[2024-01-05] MEDS: MOTRIN 600 MG PO ×2 (05:26→11:46)
[2024-01-05] MEDS: TYLENOL 1000 MG PO ×2 (05:26→11:46)
[2024-01-05 06:00] VITALS: BMI 27.7
[2024-01-05 07:05] VITALS: BP 121/55
[2024-01-05 07:14] LABS: ALT (SGPT) 21 U/L (0-35); AST (SGOT) 46 U/L (14-36); Albumin 3.5 g/dl (3.5-5.0); Alkaline Phosphatase 65 U/L (38-126); Blood Urea Nitrogen 9 mg/dl (7-17); Calcium 8.7 mg/dl (8.4-10.2); Carbon Dioxide 20 mmol/L (22-30); Chloride 106 mmol/L (98-107); Estimated Creatinine Clearance > 125 ml/min; Glucose 83 mg/dl (70-99); Potassium 4.4 mmol/L (3.5-5.1); Sodium 137 mmol/L (135-145); Total Bilirubin 0.7 mg/dl (0.2-1.3); Total Protein 5.9 g/dl (6.3-8.2); eGFR > 60.00
[2024-01-05 07:20] LABS: % Basophils 0.2 % (0-2); % Eosinophils 0.7 % (0-6); % Immature Granulocytes 0.4 % (0-0.5); % Lymphocytes 17.6 % (20.5-51.1); % Neutrophils 73.1 % (42.2-75.2); Absolute Eosinophils 0.1 10^3/uL (0-0.7); Absolute Immature Granulocytes 0.1 10^3/uL (0-0.05); Absolute Lymphocytes 2.1 10^3/uL (1.2-3.4); Absolute Monocytes 0.9 10^3/uL (0.1-0.6); Absolute Neutrophils 8.6 10^3/uL (1.4-6.5); Hematocrit 32.5 % (37.0-47.0); Hemoglobin 11.4 g/dL (12.0-16.0); Mean Corp Hgb Conc. 35.1 g/dL (33.0-37.0); Mean Corpuscular Volume 99.7 fL (81.0-99.0); Mean Platelet Volume 10.6 fL (7.4-10.4); Nucleated Red Blood Cells % 0 %; Platelet Count 242 10^3/uL (130-400); Red Blood Cell Count 3.26 10^6/uL (4.20-5.40); Red Cell Dist. Width 12.1 % (11.5-14.5); White Blood Cell Count 11.7 10^3/uL (4.8-10.8)
[2024-01-05] MEDS: FOLVITE 1 MG PO (08:16)
[2024-01-05] MEDS: NICODERM TRANSDERMAL 14 MG TRANSDERM (08:16)
[2024-01-05] MEDS: THIAMINE INJECTION 200 MG IV (08:16)
--- NOTE | 2024-01-05 08:56 | W.PN.GYNONC ---
Today's Communication
-
Please discharge home
Impression / Plan
-
I explained intraoperative findings and intraoperative procedures. Appropriately patient has concerns about new diagnosis of malignancy and subsequent need for any additional treatments.
I have reviewed with her discharge instructions specifically need for ambulation 30 to 40 minutes/day, restrictions of lifting up to 10 pounds over the next [address] for 7 days. She may return back to work in 2 weeks
I plan to see her back in the office next week at [place] and the office will be in touch with her.
All her questions were answered. Patient is okay for discharge from my perspective later today
Francisco Ramos MD
[facility]ustody Evaluator [facility]/[place]
[phone]
Subjective / Interval History
-
Postop day 1 status post laparoscopic left salpingo-oophorectomy, mini laparotomy, comprehensive staging including bilateral pelvic lymphadenectomy periaortic lymph node dissection omentectomy and appendectomy
She slept well overnight, tolerated diet okay she is voiding. Her pain is well-controlled
She has not had a bowel movement
Objective Data
-
Lab Results:
01/05/24 06:54
01/05/24 06:54
Physical Exam
Vital Signs / I&O
Vitals
Temp Pulse Resp BP Pulse Ox
98.4 F 52 16 121/55 99
01/05/24 07:05 01/05/24 07:05 01/05/24 07:05 01/05/24 07:05 01/05/24 07:05
I&O
01/03/24 01/04/24 01/05/24 01/06/24
06:59 06:59 06:59 06:59
Intake Total 120 / 120 1460 / 1460 1720 / 1720
Output Total 1565 / 1565
Balance 120 / 120 1460 / 1460 155 / 155
Physical Exam
General: Well Developed and No Apparent Distress
Respiratory: Clear and Wheezes
Cardiac: S1/S2 and Regular Rhythm
GI: Soft, Non Tender and Other (Laparoscopic incisions and low transverse incision are intact)
Skin: Warm and Dry
Neuro: Awake, Alert and Oriented
Data Reviewed
-
Lab Data: Labs Reviewed
[2024-01-05 11:05] VITALS: BP 125/61
--- NOTE | 2024-01-05 11:38 | W.PN.HOSP.TC ---
Today's Communication/Plan
-
Discharge planning today
Assessment / Plan
Assessment / Plan
Physical exam:
General: Acutely ill. Nontoxic appearance.
HEENT: Normocephalic, Atraumatic and Moist Mucous Membranes
Respiratory: Clear to Auscultation; Negative Wheezes, Rales or Rhonchi
Cardiac: Regular Rhythm and S1/S2
GI: Soft, Tender and Nondistended
Musculoskeletal: No Clubbing, No Cyanosis and No Edema
Neuro: Awake, Alert and Oriented
Psych: Calm
A/P:
Pelvic mass:
Pelvic ultrasound showed large complex cystic mass
MRI showed large complex cystic mass
Antibiotics discontinued since last night by myself after neoplastic findings from surgery.
CA125 elevated at 231
Pain control
HAND DRAWER IN HELPER oncology took her to the OR on 01/03. Findings consistent with left ovarian cancer status post debulking surgery. HAND DRAWER IN HELPER oncology cleared for discharge today.
Alcohol use disorder:
On MSA protocol
No evidence of withdrawal at the moment
Nicotine use disorder:
Nicotine patch
DVT prophylaxis-Lovenox
CODE STATUS-full code
Anticipated Discharge: Today
Subjective/Interval History
-
Date of Service: January 05, 2024
No new events.
Objective Data
-
Labs:
Laboratory Results
01/05/24
06:54
WBC 11.7 H
Hgb 11.4 L
Hct 32.5 L
Plt Count 242
Sodium 137
Potassium 4.4
Chloride 106
Carbon Dioxide 20 L
BUN 9
Creatinine 0.6
Glucose 83
Calcium 8.7
Total Bilirubin 0.7
AST 46 H
ALT 21
Alkaline Phosphatase 65
Vital Signs:
Vital Signs
Temp Pulse Resp BP Pulse Ox
98.4 F 52 16 121/55 99
01/05/24 07:05 01/05/24 07:05 01/05/24 07:05 01/05/24 07:05 01/05/24 07:05
I&O
01/04/24 01/05/24 01/06/24
06:59 06:59 06:59
Intake Total 1460 / 1460 1720 / 1720
Output Total 1565 / 1565
Balance 1460 / 1460 155 / 155
--- NOTE | 2024-01-05 11:41 | W.DCSUMMARY ---
Discharge Summary
Discharge Data
Date of Admission: 01/02/24
Date of Discharge: 01/05/24
-
Pending Results: Yes
Additional Pending Results:
Pathology of surgical resection.
Hospital Course
Patient 33 years old female who came into the hospital with abdominal pain nausea and vomiting. Patient had images of either tubo-ovarian abscess or malignancy in the pelvic area. [employer] OPERATOR and [employer]ATION OPERATOR oncology were consulted. She was given pain
medications that she was started on empiric antibiotics. IR was consulted as well. IR did drainage of pelvic lesion but no evidence of infection found. Antibiotics were discontinued. [employer] OPER[facility] oncology took her to the OR on 01/03 and found preliminary
findings of ovarian cancer therefore she underwent debulking surgery at the time. Patient did well postop. 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 No other events were
noticed. She will be discharged in stable condition today.
Discharge duration: 34 minutes
Discharge Plan
-
Patient Disposition: Home (Routine Discharge)
Discharge Diagnosis/Procedures: Left ovarian cancer status post debulking surgery with laparoscopic left salpingo-oophorectomy, lymphadenectomy, omentectomy and appendectomy.
Diet: Regular
Activity: As tolerated
Blood Work: Please PCP to order CBC, BMP within 1 week
Referrals:
Eliseo Pineda DO [Family Provider] - in less than 1 week
Francicso Ramos MD [Active] - in one to two weeks
Prescriptions:
New
acetaminophen [Tylenol Extra Strength] 500 mg tablet
500 mg PO Q6H PRN (Reason: fever or pain) Qty: 30 0RF
polyethylene glycol 3350 [Miralax] 17 gram/dose powder
4 g PO DAILY Qty: 119 0RF
oxycodone 5 mg capsule
5 mg PO Q8H PRN (Reason: severe pain) Qty: 14 0RF
Continued
ibuprofen 200 mg Tablet
600 - 800 mg PO Q6HPRN PRN (Reason: menstrual pain)
Discharge Orders:
Discharge Patient (As Directed); Ordered 01/05/24
Ordered By: Jeffery Law
Discharge Date and Time
Discharge Date/Time: 01/05/24 14:05
Print Language: ALGERIAN
--- NOTE | 2024-01-05 12:12 | CM ---
Met with patient at bedside to discuss discharge plan
Patient reported that Partner will provide transportation home and will provide assistance after discharge if needed
Patient spoke with Admissions via CM's speaker phone; and provided new health insurance information
Plan: discharge to home today; no needs
== END 2024-01-05 14:05 | disposition home or self-care (01) | DRG 734 ==
LOC: 2 SOUTH 18:21
PROVIDERS: Clinical Nurse Specialist Family Health; Radiology Diagnostic Radiology; ADMITTING PHYSICIAN Hospitalist; ATTENDING PHYSICIAN Hospitalist; CONSULT PHYSICIAN Obstetrics & Gynecology; CONSULT PHYSICIAN Obstetrics & Gynecology Gynecologic Oncology; EMERGENCY PHYSICIAN Student in an Organized Health Care Education/Training Program; FAMILY PHYSICIAN Family Medicine
PROC: 0W9G3ZZ Drainage of Peritoneal Cavity, Percutaneous Approach (ICD-10-PCS; 2024-01-03)
PROC: 0DBW4ZX Excision of Peritoneum, Percutaneous Endoscopic Approach, Diagnostic (ICD-10-PCS; 2024-01-04)
PROC: 07TD4ZZ Resection of Aortic Lymphatic, Percutaneous Endoscopic Approach (ICD-10-PCS; 2024-01-04)
PROC: 0UT64ZZ Resection of Left Fallopian Tube, Percutaneous Endoscopic Approach (ICD-10-PCS; 2024-01-04)
PROC: 0UB04ZZ Excision of Right Ovary, Percutaneous Endoscopic Approach (ICD-10-PCS; 2024-01-04)
PROC: 0WBH4ZZ Excision of Retroperitoneum, Percutaneous Endoscopic Approach (ICD-10-PCS; 2024-01-04)
PROC: 0UDB7ZX Extraction of Endometrium, Via Natural or Artificial Opening, Diagnostic (ICD-10-PCS; 2024-01-04)
PROC: 0UT14ZZ Resection of Left Ovary, Percutaneous Endoscopic Approach (ICD-10-PCS; 2024-01-04)
PROC: 8E0W4CZ Robotic Assisted Procedure of Trunk Region, Percutaneous Endoscopic Approach (ICD-10-PCS; 2024-01-04)
PROC: 07TC4ZZ Resection of Pelvis Lymphatic, Percutaneous Endoscopic Approach (ICD-10-PCS; 2024-01-04)
PROC: 0DBU4ZZ Excision of Omentum, Percutaneous Endoscopic Approach (ICD-10-PCS; 2024-01-04)
PROC: 0DTJ4ZZ Resection of Appendix, Percutaneous Endoscopic Approach (ICD-10-PCS; 2024-01-04)
DX: C56.2 Malignant neoplasm of left ovary (principal); R18.8 Other ascites; F17.210 Nicotine dependence, cigarettes, uncomplicated
CPT/HCPCS: 88304; 88305; 88307; 88332; 49083; 72197; 74177; 76830; 76856; 80053; 80306; 80307; 81003; 81015; 81025; 82010; 82077; 82105; 82977; 83615; 83690; 83735; 84100; 84703; 85025; 85610; 85730; 86304; 86850; 86900; 86901; 87015; 87070; 87086; 87205; 87491; 87591; 88112; 88313; 88331; 88342; 89051; 93005; 96361; 96374; 96375; 99285; A9575; Q9967

== ENCOUNTER → 2024-01-31 07:51 | Outpatient (REF) | payer BC, SELFPAY | LOC: PET 07:51 | PROVIDERS: ATTENDING PHYSICIAN Obstetrics & Gynecology Gynecologic Oncology | DX: C56.2 Malignant neoplasm of left ovary (principal) | CPT/HCPCS: 78815; A9552 ==

== ENCOUNTER → 2024-08-09 13:07 | Outpatient (REF) | payer BC, SELFPAY | LOC: HWRAD 13:07 | PROVIDERS: ATTENDING PHYSICIAN Obstetrics & Gynecology Gynecologic Oncology; FAMILY PHYSICIAN Family Medicine | DX: C56.2 Malignant neoplasm of left ovary (principal); Z71.9 Counseling, unspecified | CPT/HCPCS: 76830; 76856 ==

== ENCOUNTER → 2024-10-16 12:26 | Outpatient (REF) | payer BC, SELFPAY | LOC: HWRAD 12:26 | PROVIDERS: ATTENDING PHYSICIAN Obstetrics & Gynecology Gynecologic Oncology; FAMILY PHYSICIAN Family Medicine | DX: C56.2 Malignant neoplasm of left ovary (principal); Z71.9 Counseling, unspecified | CPT/HCPCS: 76830; 76856 ==

== ENCOUNTER 2024-12-11 12:04 | Emergency (ER) | payer BC, SELFPAY ==
[2024-12-11 12:07] VITALS: BP 134/97
--- NOTE | 2024-12-11 12:55 | ED.GENMED ---
History of Present Illness
General
Chief Complaint: Skin Problem
Source: patient
Exam Limitations: none
Time Seen by Provider: 12/11/24 12:26
History of Present Illness
History of Present Illness:
34-year-old female presents complaint of painful swelling to the right inguinal/buttock region getting worse over the past several days. No fevers or vomiting. She denies any drainage. No other complaints at this time
Past History
Past History
ED Past Medical History: None
ED Past Surgical History: Orthopedic (Left ACL and medial meniscus repair)
Social History
Tobacco: Smoker
Alcohol: None
Drug: None
Personal: Partner
Living: with family
Phy Exam
Physical Exam
Physical Exam:
General: Well-appearing female no acute respiratory distress
Skin: Erythema and fluctuance noted over the right posterior inguinal region
No surrounding induration.
Course
Vital Signs
Initial and Last Documented VS:
Initial Vital Signs
Temp Pulse Resp BP Pulse Ox
99.3 F 97 16 134/97 98
12/11/24 12:07 12/11/24 12:07 12/11/24 12:07 12/11/24 12:07 12/11/24 12:07
Last Documented Vital Signs
Temp Pulse Resp BP Pulse Ox
99.3 F 97 16 134/97 98
12/11/24 12:07 12/11/24 12:07 12/11/24 12:07 12/11/24 12:07 12/11/24 12:07
MDM/Problems Addressed
Differential Diagnosis Includes:
Exam most consistent with abscess. The area was cleansed and anesthetized with 1% lidocaine with epinephrine. An 11 blade scalpel was used to make an incision of the area of fluctuance. A large amount of purulent material was expressed from the
area. Loculations were broken up with a needle river driver. This was then irrigated with saline and a dry dressing was placed on the area.
*Pulse Oximetry
SaO2: 98
Oxygen Mode of Delivery: Room air
Patient hypoxic: no
*Critical Care Note
Total Time (30-74mins, 75-104mins- exclusive of procedures): Not Applicable
ED Attending Note
-
Portions of this chart may have been created with voice recognition software.� Occasional wrong word or��sound alike� substitutions may have occurred due to the inherent limitations of voice recognition software.
Discharge Plan
Departure
Patient Disposition: Home (Routine Discharge)
Date of Disposition: 12/11/24
Time of Disposition: 12:56
Patient with high blood pressure during this ER visit?: No
Discharge Problem:
Abscess
Instructions: Skin Abscess
Prescriptions:
New
amoxicillin-pot clavulanate 875-125 mg tablet
1 tab PO BID Qty: 14 0RF
No Action
ibuprofen 200 mg Tablet
600 - 800 mg PO Q6HPRN PRN (Reason: menstrual pain)
acetaminophen [Tylenol Extra Strength] 500 mg tablet
500 mg PO Q6H PRN (Reason: fever or pain) Qty: 30 0RF
polyethylene glycol 3350 [Miralax] 17 gram/dose powder
4 g PO DAILY Qty: 119 0RF
oxycodone 5 mg capsule
5 mg PO Q8H PRN (Reason: severe pain) Qty: 14 0RF
Activity Restrictions/Additional Instructions:
Keep clean. You may wash this with warm water. Take antibiotic as directed. Return if needed otherwise
Interventions
Interventions:
*Risk Screen - Suicide Last Done: 12/11/24 12:10
*General Assessment Last Done: 12/11/24 12:35
*Neglect/Abuse Screening Last Done: 12/11/24 12:10
*ED- Fall Risk Assessment Last Done: 12/11/24 12:35
*ED COVID-19 Vaccine History Last Done: 12/11/24 12:35
ED-Skin Assessment Last Done: 12/11/24 12:35
Discharge Date and Time
Print Language: AMHARIC
== END 2024-12-11 13:05 | disposition home or self-care (01) ==
LOC: EMR 12:04
PROVIDERS: EMERGENCY PHYSICIAN Emergency Medicine
DX: L02.31 Cutaneous abscess of buttock (principal); F17.200 Nicotine dependence, unspecified, uncomplicated
CPT/HCPCS: 10060; 99283

== ENCOUNTER → 2025-01-25 15:12 | Outpatient (REF) | payer BC, SELFPAY | LOC: RAD 15:12 | PROVIDERS: ATTENDING PHYSICIAN Obstetrics & Gynecology Gynecologic Oncology; FAMILY PHYSICIAN Family Medicine | DX: C56.2 Malignant neoplasm of left ovary (principal); Z71.9 Counseling, unspecified; R63.5 Abnormal weight gain; N91.2 Amenorrhea, unspecified; R53.83 Other fatigue | CPT/HCPCS: 71260; 74177; Q9967 ==